=== PATIENT | male | born 1965 | race African-American/Black ===

== ENCOUNTER 2016-10-29 12:53 | Emergency (ER) | payer OTHER ==
[~2016-10-29] VITALS: Ht 170.2 cm; Wt 102.1 kg
[~2016-10-29 12:53] MED LIST: IBUPROFEN 800800 MG PO; NOHOMEMEDICATIONS
[2016-10-29 13:02] VITALS: BP 146/89
[2016-10-29] MEDS ORDERED: TIZANIDINE HCL4 MG PO (14:02)
[2016-10-29] MEDS ORDERED: IBUPROFEN 600600 M1 PO (14:02)
== END 2016-10-29 14:10 | disposition home or self-care (01) ==
LOC: ER 12:53
DX: T14.8 Other injury of unspecified body region (principal); E78.00 Pure hypercholesterolemia, unspecified; F10.99 Alcohol use, unspecified with unspecified alcohol-induced disorder; V49.9XXA Car occupant (driver) (passenger) injured in unspecified traffic accident, initial encounter; Y93.89 Activity, other specified; Y92.9 Unspecified place or not applicable; Y99.9 Unspecified external cause status

== ENCOUNTER 2020-03-13 15:04 | Emergency (ER) | payer BC, OTHER ==
[~2020-03-13] VITALS: Ht 170.2 cm; Wt 104.3 kg
[~2020-03-13 15:04] MED LIST changes: +BACTRIM DS TAB1 EACH PO; +BACTROBAN CREAM30 G1 TOP; +IBUPROFEN 600600 M1 PO; +MOBIC15 MG PO; +TIZANIDINE HCL4 MG PO
[2020-03-13 15:35] LABS: ABSOLUTE NEUTROPHILS 3.7 thou/uL (1.4-8.2); BASOPHILS 0.6 % (0.0-2.0); EOSINOPHILS 3.5 % (0.0-3.0); HEMATOCRIT 39.3 % (42.0-52.0); HEMOGLOBIN 13.4 gm/dL (14.0-18.0); LYMPHOCYTES 31.6 % (24.0-44.0); MCH 32.4 pg (26.0-34.0); MCHC 34.1 g/dL (28.0-37.0); MCV 94.9 fL (80.0-100.0); MONOCYTES 7.5 % (1.0-8.0); PLATELET COUNT 311 thou/uL (150-400); POLYS 56.8 % (36.0-66.0); RBC 4.14 mil/uL (4.50-6.00); RDW 12.6 % (10.5-14.5); WBC 6.4 thou/uL (4.0-11.0)
[2020-03-13 15:42] LABS: CALCIUM 9.2 mg/dL (8.5-10.1); CREATININE 1.3 mg/dL (0.7-1.3); POTASSIUM 4.1 mmol/L (3.5-5.1)
[2020-03-13 15:49] LABS: ALBUMIN 4.1 g/dL (3.4-5.0); TOTAL BILIRUBIN 0.7 mg/dL (<0.1-1.0); TOTAL PROTEIN 8.1 g/dL (6.4-8.2)
[2020-03-13 15:49] LABS: URINE BILIRUBIN NEGATIVE (Negative); URINE BLOOD NEGATIVE (Negative); URINE CLARITY CLEAR; URINE COLOR YELLOW; URINE GLUCOSE-RANDOM* NEGATIVE (Negative); URINE KETONES NEGATIVE (Negative); URINE LEUKOCYTES-REFLEX NEGATIVE (Negative); URINE NITRITE-REFLEX NEGATIVE (Negative); URINE PROTEIN (DIPSTICK) NEGATIVE (Negative); URINE UROBILINOGEN 0.2 E.U./dl (0.2-1.0)
[2020-03-13 15:56] VITALS: BP 123/73
[2020-03-13] MEDS ORDERED: ONDANSETRON HCL4 M2 PO (16:39)
== END 2020-03-13 16:50 | disposition home or self-care (01) ==
LOC: ER 15:04
PROVIDERS: Emergency Medicine; Physician Assistant
DX: R11.2 Nausea with vomiting, unspecified (principal); R19.7 Diarrhea, unspecified; R10.9 Unspecified abdominal pain

== ENCOUNTER 2020-09-27 19:44 | Emergency (ER) | payer BC, OTHER ==
[~2020-09-27] VITALS: Ht 170.2 cm; Wt 117.9 kg
[~2020-09-27 19:44] MED LIST changes: +ONDANSETRON HCL4 M2 PO
[2020-09-27 20:29] LABS: ABSOLUTE NEUTROPHILS 4.5 thou/uL (1.4-8.2); EOSINOPHILS 2.4 % (0.0-3.0); HEMATOCRIT 35.7 % (42.0-52.0); HEMOGLOBIN 12.1 gm/dL (14.0-18.0); LYMPHOCYTES 25.7 % (24.0-44.0); MCH 31.8 pg (26.0-34.0); MCHC 33.8 g/dL (28.0-37.0); PLATELET COUNT 279 thou/uL (150-400); POLYS 63.9 % (36.0-66.0); RDW 12.7 % (10.5-14.5); WBC 7.1 thou/uL (4.0-11.0)
[2020-09-27 20:36] LABS: ANION GAP 8 mmol/L (7-16); BUN 13 mg/dL (7-18); CALCIUM 8.9 mg/dL (8.5-10.1); CHLORIDE 102 mmol/L (98-107); CO2 29 mmol/L (21-32); CREATININE 1.3 mg/dL (0.7-1.3); GLUCOSE 143 mg/dL (74-106); SODIUM 139 mmol/L (136-145)
[2020-09-27 20:45] LABS: TROPONIN-I <0.06 ng/mL (<0.06)
[2020-09-27 22:02] VITALS: BP 155/78
--- NOTE | 2020-09-28 09:56 | EKG ---
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
== END 2020-09-27 22:03 | disposition home or self-care (01) ==
LOC: ER 19:44
PROVIDERS: Emergency Medicine
DX: R07.89 Other chest pain (principal); R11.0 Nausea; E78.00 Pure hypercholesterolemia, unspecified; E66.9 Obesity, unspecified; Z68.41 Body mass index [BMI] 40.0-44.9, adult

== ENCOUNTER 2020-11-19 14:10 | Emergency (ER) | payer BC, OTHER ==
[~2020-11-19] VITALS: Ht 170.2 cm; Wt 117.9 kg
[2020-11-19] MEDS ORDERED: VITAMIN B COMP1 EACH PO (14:17)
[2020-11-19] MEDS ORDERED: SUPER THERAVIT1 EACH PO (14:17)
[2020-11-19] MEDS ORDERED: CALCIUM CARBON500 MG PO (14:17)
[2020-11-19 15:30] VITALS: BP 142/88
== END 2020-11-19 15:30 | disposition home or self-care (01) ==
LOC: ER 14:10
DX: M25.572 Pain in left ankle and joints of left foot (principal); E78.00 Pure hypercholesterolemia, unspecified; Z79.899 Other long term (current) drug therapy; X58.XXXA Exposure to other specified factors, initial encounter; Y93.89 Activity, other specified; Y92.89 Other specified places as the place of occurrence of the external cause; Y99.8 Other external cause status

== ENCOUNTER → 2021-06-28 | Emergency (ER) | payer OTHER ==
[~2021-06-28] VITALS: Ht 170.2 cm; Wt 113.4 kg
[~2021-06-28] MED LIST changes: +CALCIUM CARBON500 MG PO; +SUPER THERAVIT1 EACH PO; +VITAMIN B COMP1 EACH PO
[2021-06-28 09:09] VITALS: BP 131/86
== END ==
LOC: ER 09:09
PROVIDERS: Emergency Medicine
DX: J06.9 Acute upper respiratory infection, unspecified (principal); Z20.822 Contact with and (suspected) exposure to COVID-19; E78.00 Pure hypercholesterolemia, unspecified; Z79.899 Other long term (current) drug therapy

== ENCOUNTER 2021-07-05 11:25 | Emergency (ER) | payer OTHER ==
[~2021-07-05] VITALS: Ht 170.2 cm; Wt 117.9 kg
[2021-07-05 11:26] VITALS: BP 132/74
--- NOTE | 2021-07-05 23:24 | NUR ---
LAB CALLED WITH POSITIVE COVID RESULT. PT CONTACTED AND NAME VERIFIED RESULT PROVIDED TO PT.
== END 2021-07-05 12:50 | disposition home or self-care (01) ==
LOC: ER 11:25
PROVIDERS: Physician Assistant
DX: U07.1 COVID-19 (principal); E78.00 Pure hypercholesterolemia, unspecified; Z79.899 Other long term (current) drug therapy